=== PATIENT | female | born 1960 | race Caucasian/White ===

== ENCOUNTER → 2016-06-22 | Outpatient (CLI) | payer BC ==
[~2016-06-22] MED LIST: /AMIT100TA PO; /ESCI10TA PO; /MAGN40TA PO; /MESA40TAB PO; /METO25TAB PO; /TAMS4CA PO; ACEBUTOLOL; ACET50TA PO; AMIT100T; BACITAB PO; BUPR15TA PO; CLOT7CR TOP; CONC27TA4 PO; CYCL10TA PO; ESTR2TAB PO; FERR325T; IMIT50TA PO; KETO10TAB PO; LEVO75TA6 PO; LEVO88TA4; LEXA1TAB PO; LOPE2CA PO; LYRI150C PO; MACR100C3 PO; MELATONIN; MULTCAP PO; PEPT262S PO; PRED20TA PO; PREG50CA; PRIL40CA PO; TOPA100T PO; TOPRAMAX PO; TYLE650T30 PO; VITA200016 PO; VITA500T; ZANA4CAP PO; ZOCO20TA PO; ZOLO100T; ZOLO100T PO
--- NOTE | 2016-06-22 09:52 | REP ---
BILATERAL MAMMOGRAM: Bilateral mammography is performed in the MLO and CC projections and compared to multiple prior exams, most recently 05/19/2015. Benign appearing nodule in the outer left breast is stable. Two spiculated densities are seen laterally on the right CC view, questionably seen superiorly on the right MLO view. Recommend spot compression views and ultrasound to further evaluate. Otherwise, there is no change in the parenchymal pattern bilaterally. No clustered microcalcifications are seen. IMPRESSION: ACR 0 incomplete. On the right CC view laterally, two adjacent somewhat spiculated nodular opacities are seen. These are questionably seen on the right MLO view superiorly. Recommend spot compression views and ultrasound to further evaluate. BI-RADS/ACR category 0 mammogram, incomplete. Additional imaging and/or prior images are needed before a final assessment can be assigned. This mammogram was interpreted with the aid of an FDA-approved computer-aided detection system. A. Negative x-ray reports should not delay biopsy if a dominant or clinically suspicious mass is present. B. Four to eight percent of cancers are not identified by x-ray. C. Adenosis and dense breasts may obscure an underlying neoplasm. The patient states she/he had a clinical breast exam in January 2016. The patient letter being requested is M0 Signed by Magdiel Garcia MD 06/22/2016 12:58 P
== END ==
LOC: M WHC 07:00
PROVIDERS: ATTEND Nurse Practitioner Family
DX: Z12.31 Encounter for screening mammogram for malignant neoplasm of breast (principal)

== ENCOUNTER → 2016-06-26 | Outpatient (CLI) | payer BC, OTHER ==
--- NOTE | 2016-06-26 17:34 | REP ---
Digital diagnostic unilateral right breast mammography with CAD: History: Screening mammography from 06/22/2016 was BIRADS category zero for possible nodular neodensity. Diagnostic right breast mammography was recommended. Comparison mammography is also reviewed from 05/19/2015 and 10/29/2013. Findings: Magnified focal spot compression CC, MLO and true MLO views of the right breast were obtained. These show nodular breast parenchyma elements of which are felt to be unchanged from October 2013. The area in question compresses away to normal appearing stromal elements. No microcalcification is seen. No spiculation or architectural distortion is noted. Impression: BIRADS category II benign right mammography. Repeat bilateral mammography recommended 1 year. BI-RADS/ACR category 2 mammogram. Benign finding(s). Routine annual screening mammography (for women over age 40). This mammogram was interpreted with the aid of an FDA-approved computer-aided detection system. The patient states she had a clinical breast exam in January 2016 The patient letter being requested is M2. Signed by Nirmal Owen MD 06/26/2016 06:28 P
== END ==
LOC: M RAD 16:10
PROVIDERS: ATTEND Nurse Practitioner Family
DX: R92.8 Other abnormal and inconclusive findings on diagnostic imaging of breast (principal)

== ENCOUNTER → 2016-09-08 | Outpatient (CLI) | payer BC, OTHER ==
--- NOTE | 2016-09-08 08:50 | REP ---
Clinical: Diarrhea and abdominal pain. Technique: Garcia scale ultrasound using curved array transducer. Findings: The liver and pancreas are normal in contour, size, and echogenicity without focal hepatic or pancreatic lesions identified. The gallbladder is mildly distended and demonstrates multiple mobile gallstones without wall thickening or pericholecystic fluid. A positive sonographic Beyer's sign was however elicited. No biliary ductal dilatation is appreciated, and the common bile duct measures 3.5 mm diameter. The right kidney is normal in reniform shape without hydronephrosis and measures 11.3 x 5.2 x 4.0 cm. No ascites. Visualized portions of the abdominal aorta normal. Impression: Distended gallbladder with multiple gallstones and positive sonographic Beyer's sign. Findings are equivocal for acute cholecystitis versus biliary colic and correlation is required. Signed by Antwon Schuster MD 09/08/2016 08:41 A
[2016-09-08 10:01] LABS: ALBUMIN 3.8 GM/DL (3.2-5.2); ALBUMIN/GLOBULIN RATIO 1.31 (1.00-1.93); BILIRUBIN,TOTAL 0.6 MG/DL (0.2-1.0); CALCIUM LEVEL 8.2 MG/DL (8.5-10.1); CREATININE FOR GFR 1.06 MG/DL (0.55-1.02); FREE T4 0.91 NG/DL (0.76-1.46); GLOMERULAR FILTRATION RATE 57.7 (>51); POTASSIUM SERUM 4.3 MEQ/L (3.5-5.1); TOTAL PROTEIN 6.7 GM/DL (6.4-8.2)
[2016-09-08 10:21] LABS: BASO # 0.1 K/mm3 (0.0-0.2); BASO % 1.6 % (0.0-1.0); EOS # 0.2 K/mm3 (0.0-0.50); EOS % 3.2 % (0.0-3.0); LARGE UNSTAINED CELL # 0.1 K/mm3 (0.0-0.4); LARGE UNSTAINED CELL % 1.4 % (0.0-4.0); LYMPH # 1.6 K/mm3 (1.5-4.5); MEAN CORPUSCULAR HEMOGLOBIN 31.5 pg (27.0-33.0); MEAN CORPUSCULAR HGB CONC 33.6 g/dl (32.0-36.5); MEAN CORPUSCULAR VOLUME 93.9 fl (80.0-96.0); MONO # 0.4 K/mm3 (0.0-0.8); MONO % 7.2 % (0.0-5.0); NEUTROPHILS # 3.3 K/mm3 (1.8-7.7); NEUTROPHILS % 58.5 % (36.0-66.0); PLATELET COUNT, AUTOMATED 233 k/mm3 (150-450); RED CELL DISTRIBUTION WIDTH 12.8 % (11.5-14.5); WHITE BLOOD COUNT 5.6 K/mm3 (4.0-10.0)
== END ==
LOC: M RAD 07:02 → M LAB 07:02
PROVIDERS: ATTEND Nurse Practitioner Family
DX: K59.1 Functional diarrhea (principal)

== ENCOUNTER → 2017-04-09 | Outpatient (REF) | payer OTHER | LOC: M SFHCLERA 12:28 | DX: D23.62 Other benign neoplasm of skin of left upper limb, including shoulder (principal) ==

== ENCOUNTER → 2017-07-09 | Outpatient (REF) | payer OTHER ==
[2017-07-09 16:50] LABS: BASO % 0.5 % (0.0-1.0); EOS # 0.1 10^3/uL (0.0-0.50); HEMATOCRIT 38.8 % (36.0-47.0); HEMOGLOBIN 12.6 g/dl (12.0-15.5); IMMATURE GRANULOCYTE % 0.4 % (0-3.0); LYMPH # 1.3 10^3/uL (1.5-4.5); LYMPH % 16.9 % (24.0-44.0); MEAN CORPUSCULAR HEMOGLOBIN 30.8 pg (27.0-33.0); MEAN CORPUSCULAR HGB CONC 32.5 g/dl (32.0-36.5); MEAN CORPUSCULAR VOLUME 94.9 fl (80.0-96.0); MONO # 0.9 10^3/uL (0.0-0.8); MONO % 11.6 % (0.0-5.0); NEUTROPHILS # 5.4 10^3/uL (1.8-7.7); NEUTROPHILS % 69.6 % (36.0-66.0); PLATELET COUNT, AUTOMATED 256 10^3/uL (150-450); RED BLOOD COUNT 4.09 10^6/uL (4.00-5.40); RED CELL DISTRIBUTION WIDTH 13.4 % (11.5-14.5); WHITE BLOOD COUNT 7.8 10^3/uL (4.0-10.0)
[2017-07-09 17:13] LABS: ALBUMIN 3.9 GM/DL (3.2-5.2); ALBUMIN/GLOBULIN RATIO 1.22 (1.00-1.93); ALKALINE PHOSPHATASE 103 U/L (45-117); ALT/SGPT 26 U/L (12-78); ANION GAP 9 MEQ/L (8-16); AST/SGOT 15 U/L (7-37); BILIRUBIN,TOTAL 0.2 MG/DL (0.2-1.0); BLOOD UREA NITROGEN 11 MG/DL (7-18); CALCIUM LEVEL 8.4 MG/DL (8.5-10.1); CARBON DIOXIDE LEVEL 28 MEQ/L (21-32); CHLORIDE LEVEL 106 MEQ/L (98-107); CREATININE FOR GFR 0.96 MG/DL (0.55-1.30); GLOMERULAR FILTRATION RATE > 60.0 (>51); GLUCOSE, FASTING 90 MG/DL (70-100); LIPASE 137 U/L (73-393); POTASSIUM SERUM 4.3 MEQ/L (3.5-5.1); SODIUM LEVEL 143 MEQ/L (136-145); TOTAL PROTEIN 7.1 GM/DL (6.4-8.2)
== END ==
LOC: M SFHCLERA 11:07
DX: Z90.49 Acquired absence of other specified parts of digestive tract (principal); R19.7 Diarrhea, unspecified; J02.9 Acute pharyngitis, unspecified

== ENCOUNTER → 2017-10-16 | Outpatient (CLI) | payer BC | LOC: M WHC 06:33 | DX: Z12.31 Encounter for screening mammogram for malignant neoplasm of breast (principal) | CPT/HCPCS: 77067 ==

== ENCOUNTER → 2017-12-13 | Outpatient (REF) | payer OTHER | LOC: M SFHCWAGY 13:38 | DX: N89.8 Other specified noninflammatory disorders of vagina (principal) ==

== ENCOUNTER 2017-12-18 17:55 | Emergency (ER) | payer BC, OTHER ==
[2017-12-18] MEDS: CLINDAMYCIN 150 MG CAP PO (20:08)
[2017-12-18] MEDS: NORCO 5/325MG TABLET (BULK FOR ED) PO (20:09)
== END 2017-12-18 20:14 | disposition home or self-care (01) ==
LOC: M ED 17:55
DX: K08.89 Other specified disorders of teeth and supporting structures (principal); E03.9 Hypothyroidism, unspecified; Z79.899 Other long term (current) drug therapy; Z88.0 Allergy status to penicillin; Z88.2 Allergy status to sulfonamides; Z88.8 Allergy status to other drugs, medicaments and biological substances
CPT/HCPCS: 99283

== ENCOUNTER → 2017-12-18 | Outpatient (CLI) | payer BC | LOC: M WHC 13:02 | DX: R33.9 Retention of urine, unspecified (principal); R39.198 Other difficulties with micturition | CPT/HCPCS: 76857 ==

== ENCOUNTER → 2018-02-23 | Outpatient (CLI) | payer BC, OTHER ==
[~2018-02-23] MED LIST changes: +ADVI200C5 PO; +CLEO300C2 PO; +COLA100C5 PO; +EFFE75CA2 PO; +ESTR1TAB PO; +IBUP-1022 PO; +LEVO75TA4 PO; +MAGN200T PO; +METO25TA4 PO; +NORC1TAB4 PO; +NORCOTAB PO; +OMEP40CA2 PO; +TRAZ-163 PO; +WELL100T2 PO
--- NOTE | 2018-02-24 22:07 | ECGEPIP ---
Stationary ECG Study 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 NO SIGNIFICANT CHANGES Electronically Signed On 02-24-2018 22:07:23 EST by Jean Rueda
== END ==
LOC: M EKG 12:22 → M LAB 12:22
PROVIDERS: ATTEND Anesthesiology
DX: Z01.818 Encounter for other preprocedural examination (principal); R55 Syncope and collapse

== ENCOUNTER 2018-02-28 10:56 | Day surgery (SDC) | payer BC, OTHER ==
[2018-02-28] MEDS: LR 1,000 ML IV ×3 (11:50→19:45)
[2018-02-28] MEDS: VASOPRESSIN INJ 20 UNITS/ML VIAL As Ordered (13:10)
[2018-02-28] MEDS ORDERED: MIDAZOLAM INJ 2 MG/2 ML VIAL (J2250) As Ordered (13:12)
[2018-02-28] MEDS ORDERED: LIDOCAINE 2% INJ 100 MG/5 ML SDV (FOR ANES.) As Ordered (13:12)
[2018-02-28] MEDS ORDERED: fentaNYL 100 MCG/2 ML INJECTION (J3010) As Ordered ×3 (13:12→15:50)
[2018-02-28] MEDS ORDERED: PROPOFOL 200 MG/20 ML VIAL As Ordered (13:12)
[2018-02-28] MEDS ORDERED: ONDANSETRON 4MG/2ML VIAL (J2405) As Ordered (13:12)
[2018-02-28] MEDS ORDERED: dexameTHASONE 4 MG/ML 1ML VIAL (J1100) As Ordered (13:12)
[2018-02-28] MEDS ORDERED: METOCLOPRAMIDE INJ 10MG/2ML VIAL (J2765) As Ordered (13:12)
[2018-02-28] MEDS ORDERED: KETOROLAC 60 MG/2 ML VIAL (J1885) As Ordered (13:12)
[2018-02-28] MEDS: PERCOCET 5MG/325MG TAB PO ×2 (15:50→16:20)
[2018-02-28] MEDS ORDERED: PERCOCET 5MG/325MG TAB As Ordered (15:50)
[2018-02-28] MEDS: fentaNYL 100 MCG/2 ML INJECTION (J3010) IV ×4 (15:50→16:05)
[2018-02-28] MEDS ORDERED: ONDANSETRON 4MG/2ML VIAL (J2405) IV (16:00)
[2018-02-28] MEDS: HYDROMORPHONE HCL 0.5 MG/ 0.5 ML SYRINGE (J1170 PER 1) IV ×10 (16:10→17:45)
[2018-02-28] MEDS ORDERED: HYDROMORPHONE HCL 0.5 MG/ 0.5 ML SYRINGE (J1170 PER 1) As Ordered (17:23)
[2018-03-01] MEDS: IBUPROFEN 600 MG TAB PO (00:43)
[2018-03-01] MEDS: NORCO, ANEXSIA 5/325MG TABLET (HYDROcodone/ACETAMINOPHEN) PO ×2 (02:20→09:20)
[2018-03-01] MEDS: LR 1,000 ML IV ×2 (07:23)
== END 2018-03-01 09:50 | disposition home or self-care (01) ==
LOC: M SDC 10:56 → M MS5PR 18:15
DX: T83.721A Exposure of implanted vaginal mesh into vagina, initial encounter (principal); N81.6 Rectocele; K58.8 Other irritable bowel syndrome; E03.9 Hypothyroidism, unspecified; K21.9 Gastro-esophageal reflux disease without esophagitis; F32.9 Major depressive disorder, single episode, unspecified; Z79.899 Other long term (current) drug therapy; Z88.0 Allergy status to penicillin; Z88.2 Allergy status to sulfonamides; Y76.2 Prosthetic and other implants, materials and accessory obstetric and gynecological devices associated with adverse incidents; Y84.8 Other medical procedures as the cause of abnormal reaction of the patient, or of later complication, without mention of misadventure at the time of the procedure
CPT/HCPCS: 57295

== ENCOUNTER → 2018-04-29 | Outpatient (CLI) | payer BC, OTHER ==
[2018-04-29 13:44] LABS: CHOLESTEROL RISK RATIO 2.674 (<5); THYROID STIMULATING HORMONE 0.328 uIU/ML (0.358-3.740); TOTAL 25(OH) VITAMIN D 31.5 NG/ML (30.0-100.0)
== END ==
LOC: M LAB 11:48
PROVIDERS: ATTEND Family Medicine
DX: E55.9 Vitamin D deficiency, unspecified (principal); E03.9 Hypothyroidism, unspecified; Z13.1 Encounter for screening for diabetes mellitus; E78.49 Other hyperlipidemia

== ENCOUNTER → 2018-06-24 | Outpatient (REF) | payer OTHER ==
[~2018-06-24] MED LIST changes: -/AMIT100TA PO; -/ESCI10TA PO; -/MAGN40TA PO; -/METO25TAB PO; -/TAMS4CA PO; -ACET50TA PO; +AMIT1TAB12 PO; +FLOM0.4C39 PO; +HYDR-3715 PO; +MAGN400T15 PO; +MAPA500T17 PO; +METO1TAB87 PO; -NORC1TAB4 PO; +NORC1TAB7 PO; -NORCOTAB PO
== END ==
LOC: M SFHCPLAZ 12:26
PROVIDERS: ATTEND Family Medicine
DX: L57.0 Actinic keratosis (principal)

== ENCOUNTER → 2018-09-26 | Outpatient (REF) | payer OTHER | LOC: M SFHCLERA 17:57 | PROVIDERS: ATTEND Physician Assistant | DX: R30.0 Dysuria (principal) ==

== ENCOUNTER → 2019-03-07 | Outpatient (REF) | payer OTHER ==
[~2019-03-07] MED LIST changes: -OMEP40CA2 PO; +OMEP40CA97 PO
[2019-03-07 11:28] LABS: ALT/SGPT 23 U/L (12-78); BILIRUBIN,TOTAL 0.3 MG/DL (0.2-1.0); BLOOD UREA NITROGEN 25 MG/DL (7-18); CALCIUM LEVEL 9.2 MG/DL (8.5-10.1); CARBON DIOXIDE LEVEL 32 MEQ/L (21-32); CHLORIDE LEVEL 101 MEQ/L (98-107); CHOLESTEROL LEVEL 297 MG/DL (<200); CHOLESTEROL RISK RATIO 2.911 (<5); CREATININE FOR GFR 0.89 MG/DL (0.55-1.30); GLOMERULAR FILTRATION RATE > 60.0 (>51); GLUCOSE, FASTING 89 MG/DL (70-100); HDL CHOLESTEROL 102 MG/DL (>40); LDL CHOLESTEROL 155 MG/DL (<100); MAGNESIUM LEVEL 1.9 MG/DL (1.8-2.4); NON-HDL-C 195 MG/DL; POTASSIUM SERUM 4.5 MEQ/L (3.5-5.1); SODIUM LEVEL 139 MEQ/L (136-145); TOTAL PROTEIN 7.3 GM/DL (6.4-8.2); TRIGLYCERIDES LEVEL 201 MG/DL (<150)
[2019-03-07 11:29] LABS: TOTAL 25(OH) VITAMIN D 38.5 NG/ML (30.0-100.0)
== END ==
LOC: M SFHCPLAZ 07:35
PROVIDERS: ATTEND Family Medicine
DX: Z13.1 Encounter for screening for diabetes mellitus (principal); E78.2 Mixed hyperlipidemia; R25.2 Cramp and spasm; E03.9 Hypothyroidism, unspecified; E55.9 Vitamin D deficiency, unspecified

== ENCOUNTER → 2019-03-31 | Outpatient (REF) | payer OTHER ==
[~2019-03-31] MED LIST changes: -TRAZ-163 PO; +TRAZ-257 PO
[2019-03-31 16:15] LABS: INFLUENZA A AMPLIFICATION POSITIVE (NEGATIVE); INFLUENZA B AMPLIFICATION NEGATIVE (NEGATIVE)
== END ==
LOC: M LAB REF 15:04
PROVIDERS: ATTEND Physician Assistant
DX: R50.9 Fever, unspecified (principal); R05 Cough

== ENCOUNTER → 2019-04-21 | Outpatient (CLI) | payer BC, OTHER ==
--- NOTE | 2019-04-21 11:09 | REPMRS ---
Patient History The patient states she had a clinical breast exam in April 2019. No known family history of cancer. Benign cyst aspiration of the right breast, 2009. Taking unspecified hormones for 8 years. Digital Woman Screen Mammo: April 21, 2019 - Exam #: [id number] Bilateral CC and MLO view(s) were taken. Technologist: Destini Willis, Technologist Prior study comparison: October 16, 2017, bilateral digital woman screen mammo performed at [facility]. June 26, 2016, right breast digital mammo diagnostic unilateral, performed at [facility]. June 22, 2016, digital woman screen mammo performed at [facility]. FINDINGS: There are scattered fibroglandular densities. There are multiple well circumscribed nodules bilaterally in each breast. This pattern as noted previously. There is a dominant well-circumscribed oval-shaped nodule in each breast which is more prominent than on prior mammography. These merit further evaluation. There is a 1.6 cm nodule in the right breast laterally and a 1.4 cm nodule in the left breast upper outer quadrant more retroareolar. There has been no other change in the appearance of the mammogram from the prior studies. There is a mild amount of scattered fibroglandular density which is fairly symmetric. There is no other interval development of dominant mass, architectural distortion, or grouped microcalcification suggestive of malignancy. 3-D tomosynthesis shows no additional findings. Assessment: BI-RADS/ACR category 0 mammogram, Incomplete: Need additional imaging evaluation and/or prior mammograms for comparison. Recommendation Ultrasound and special view mammogram of both breasts. This patient's Lifetime Breast Cancer Risk is estimated at 6.2 %. This mammogram was interpreted with the aid of an FDA-approved computer-aided dectection system. Electronically Signed By: Reece Owen MD 04/21/19 [id number]
== END ==
LOC: M WHC 08:21
PROVIDERS: ATTEND Nurse Practitioner Family
DX: Z12.31 Encounter for screening mammogram for malignant neoplasm of breast (principal); Z79.899 Other long term (current) drug therapy

== ENCOUNTER → 2019-04-25 | Outpatient (CLI) | payer BC, OTHER ==
--- NOTE | 2019-04-25 12:40 | REP ---
DIGITAL DIAGNOSTIC BILATERAL MAMMOGRAPHY WITH CAD AND FOCUSED BILATERAL SONOGRAPHY: HISTORY: Screening mammography April 21, 2019 was BI-RADS category 0 because of a dominant density projecting in the upper outer quadrant of each breast. Diagnostic imaging was recommended. Comparison is also made with October 16, 2017 prior mammography. MAMMOGRAPHIC FINDINGS: Magnified focal spot compression CC, MLO, and mediolateral projection images are obtained bilaterally. These confirm the presence of a well-circumscribed sharply marginated 15 mm opacity in the 8-o'clock position on the right and a 14 mm sharply marginated opacity in the left breast at approximately the 3-o'clock position. These correspond to the findings on screening mammography. No other significant mammographic finding is seen. SONOGRAPHIC FINDINGS: Focused right breast scanning is performed at 8-o'clock position on the right. Two simple cysts are observed at in the 8-o'clock position. 2 cm from the nipple, there is a 1.1 x 1.5 x 0.6 cm cyst. 3 cm from the nipple in the 8-o'clock position, there is a 0.8 x 0.7 x 0.4 cm cyst. The larger of these is felt to correspond to the right-sided mammographic opacity. In the left breast, scanning is performed at approximately 3-o'clock position, where there are also two simple cysts seen sonographically. These measure 1.2 x 0.9 x 0.6 cm and 0.7 x 0.5 x 0.7 cm, respectively. No mass lesion is seen on either side. IMPRESSION: BIRADS 2: BI-RADS/ACR category 2 mammogram. Benign Findings. BI-RADS category 2 benign findings. Cysts seen bilaterally. Repeat bilateral screening mammography recommended in 1 year. This mammogram was interpreted with the aid of an FDA-approved computer-aided detection system. The patient letter being requested is M1. Electronically Signed by Nirmal Owen MD 04/25/2019 01:19 P
== END ==
LOC: M WHC 08:48
PROVIDERS: ATTEND Nurse Practitioner Family
DX: Z12.31 Encounter for screening mammogram for malignant neoplasm of breast (principal)

== ENCOUNTER 2019-06-03 17:50 | Emergency (ER) | payer BC, OTHER ==
[~2019-06-03] VITALS: Ht 165.1 cm; Wt 70.4 kg
[2019-06-03] MEDS ORDERED: NS 1,000 ML IV ONE (18:30)
[2019-06-03] MEDS ORDERED: ONDANSETRON 4MG/2ML VIAL (J2405) IV ONE (18:30)
[2019-06-03] MEDS ORDERED: VENL150C43 (18:59)
[2019-06-03] MEDS ORDERED: CITA20TA6 PO (18:59)
[2019-06-03] MEDS ORDERED: LEVO50TA5 (18:59)
[2019-06-03 19:12] LABS: BASO # 0.1 10^3/uL (0.0-0.2); BASO % 0.7 % (0.0-1.0); EOS # 0.3 10^3/uL (0.0-0.5); EOS % 3.2 % (0.0-3.0); HEMATOCRIT 40.2 % (36.0-47.0); HEMOGLOBIN 12.6 g/dl (12.0-15.5); LYMPH # 1.8 10^3/uL (1.5-5.0); LYMPH % 21.7 % (24.0-44.0); MEAN CORPUSCULAR HEMOGLOBIN 28.1 pg (27.0-33.0); MEAN CORPUSCULAR HGB CONC 31.3 g/dl (32.0-36.5); MEAN CORPUSCULAR VOLUME 89.5 fl (80.0-96.0); MONO # 0.7 10^3/uL (0.0-0.8); MONO % 8.8 % (0.0-5.0); NEUTROPHILS # 5.3 10^3/uL (1.5-8.5); NEUTROPHILS % 64.9 % (36.0-66.0); PLATELET COUNT, AUTOMATED 318 10^3/uL (150-450); RED BLOOD COUNT 4.49 10^6/uL (4.00-5.40); WHITE BLOOD COUNT 8.2 10^3/uL (4.0-10.0)
[2019-06-03 19:28] LABS: BLOOD UREA NITROGEN 16 MG/DL (7-18); CALCIUM LEVEL 7.9 MG/DL (8.5-10.1); CARBON DIOXIDE LEVEL 25 MEQ/L (21-32); CHLORIDE LEVEL 110 MEQ/L (98-107); CREATININE FOR GFR 0.88 MG/DL (0.55-1.30); GLOMERULAR FILTRATION RATE > 60.0 (>51); GLUCOSE, FASTING 81 MG/DL (70-100); POTASSIUM SERUM 3.7 MEQ/L (3.5-5.1); SODIUM LEVEL 140 MEQ/L (136-145)
[2019-06-03] MEDS ORDERED: LOMO2.5T PO (22:13)
[2019-06-03] MEDS ORDERED: ONDA4TAB6 PO (22:13)
[2019-06-03] MEDS ORDERED: LOMOTIL 2.5MG/0.025MG TABLET PO ONE (22:15)
[2019-06-03 22:23] VITALS: BP 139/78
== END 2019-06-03 22:27 | disposition home or self-care (01) ==
LOC: M ED 17:50
DX: K52.9 Noninfective gastroenteritis and colitis, unspecified (principal); A08.4 Viral intestinal infection, unspecified; M79.7 Fibromyalgia; G43.909 Migraine, unspecified, not intractable, without status migrainosus; Z79.899 Other long term (current) drug therapy; Z88.0 Allergy status to penicillin; Z88.2 Allergy status to sulfonamides
CPT/HCPCS: 80048; 85025; 87507; 96361; 96374; 99284; J2405

== ENCOUNTER → 2019-07-01 | Outpatient (CLI) | payer BC, OTHER ==
[~2019-07-01] MED LIST changes: +CITA20TA6 PO; +CYCL-707 PO; -CYCL10TA PO; +LEVO50TA5; +LOMO2.5T PO; +ONDA4TAB6 PO; +VENL150C43
--- NOTE | 2019-07-02 04:13 | REPPI ---
Clinical: Right rib pain. Technique: Frontal view of the chest with four views of the right hemithorax. Findings: Frontal view of the chest demonstrates no acute cardiopulmonary process. Multiple views of the right hemithorax demonstrates no obvious acute rib fracture or pathology. The irregularity of the mid right 12th rib may represent a old healed fracture. Impression: No obvious acute right rib fracture or pathology. Electronically Signed by Antwon Schuster MD 07/02/2019 04:06 A
== END ==
LOC: M PLAIMG 11:21
PROVIDERS: ATTEND Family Medicine
DX: R07.81 Pleurodynia (principal)

== ENCOUNTER → 2019-10-01 | Outpatient (CLI) | payer BC, OTHER ==
[~2019-10-01] MED LIST changes: +SUMA100T2
--- NOTE | 2019-10-01 13:15 | REP ---
Clinical: Bilateral hand pain and stiffness. Technique: AP and lateral views of the right and left hand. Findings: Right hand demonstrates subchondral sclerosis and mild joint space narrowing involving the interphalangeal joints. No subchondral cystic changes osteophytosis or periarticular calcifications. No periarticular swelling. Subchondral sclerosis and cortical irregularities with joint space narrowing also identified involving the carpometacarpal joints and radiocarpal joint space. Left hand demonstrates subchondral sclerosis and mild joint space narrowing involving the interphalangeal joints. No subchondral cystic changes osteophytosis or periarticular calcifications. No periarticular swelling. Subchondral sclerosis and cortical irregularities with joint space narrowing also identified involving the carpometacarpal joints and radiocarpal joint space. 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 Electronically Signed by Antwon Schuster MD 10/01/2019 01:07 P
--- NOTE | 2019-10-01 13:16 | REP ---
Clinical: Pain and stiffness. Technique: AP and lateral views of the right and left wrist. Findings: Right wrist demonstrates cortical irregularity with subtle subchondral sclerosis and joint space narrowing primarily involving the first and second and fifth carpometacarpal joints. Increase sclerosis and joint space narrowing also identified along the radiocarpal joint line. No acute fracture dislocation. Left wrist demonstrates cortical irregularity with subtle subchondral sclerosis and joint space narrowing primarily involving the first and second and fifth carpometacarpal joints. Increase sclerosis and joint space narrowing also identified along the radiocarpal joint line. No acute fracture dislocation. Impression: Mild relatively symmetric osteoarthritic degenerative changes to the bilateral wrists. Electronically Signed by Antwon Schuster MD 10/01/2019 01:08 P
--- NOTE | 2019-10-01 13:18 | REP ---
Clinical: Sacral back pain. Technique: AP and bilateral oblique views of the sacroiliac joints. Findings: The sacroiliac joints appear symmetric and normal. The surrounding osseous structures are intact. Mild arthritic changes to the bilateral hips suggested. Impression: Normal symmetric bilateral sacroiliac joints. Electronically Signed by Antwon Schuster MD 10/01/2019 01:10 P
--- NOTE | 2019-10-01 13:20 | REP ---
Clinical: Sacral back pain. Technique: AP, lateral, bilateral oblique, flexion/extension and coned-down views of the lumbosacral spine. Findings: Alignment and lordosis maintained. No acute fracture / compression injury or subluxation. Disc spaces are within normal limits. No significant degenerative changes noted. No spondylolysis or spondylolisthesis. Impression: Normal age appropriate lumbosacral spine radiograph series. Electronically Signed by Antwon Schuster MD 10/01/2019 01:12 P
== END ==
LOC: M LRY 12:07
PROVIDERS: ATTEND Family Medicine
DX: M53.3 Sacrococcygeal disorders, not elsewhere classified (principal); M47.818 Spondylosis without myelopathy or radiculopathy, sacral and sacrococcygeal region; M19.031 Primary osteoarthritis, right wrist; M19.032 Primary osteoarthritis, left wrist; M19.041 Primary osteoarthritis, right hand; M19.042 Primary osteoarthritis, left hand

== ENCOUNTER 2020-01-05 08:41 | Emergency (ER) | payer OTHER, BC ==
[~2020-01-05] VITALS: Ht 165.1 cm; Wt 53.0 kg
[~2020-01-05 08:41] MED LIST changes: -SUMA100T2
[2020-01-05] MEDS ORDERED: SUMA100T2 (08:52)
[2020-01-05] MEDS ORDERED: ACETAMINOPHEN 500 MG TAB PO ONE (09:30)
[2020-01-05] MEDS ORDERED: ISOVUE-370 76% 100ML VIAL As Ordered ONE (10:19)
[2020-01-05 10:39] LABS: BASO # 0.1 10^3/uL (0.0-0.2); EOS # 0.3 10^3/uL (0.0-0.5); EOS % 3.1 % (0.0-3.0); HEMATOCRIT 33.1 % (36.0-47.0); HEMOGLOBIN 10.3 g/dl (12.0-15.5); LYMPH # 1.4 10^3/uL (1.5-5.0); LYMPH % 15.5 % (24.0-44.0); MEAN CORPUSCULAR HEMOGLOBIN 28.8 pg (27.0-33.0); MEAN CORPUSCULAR HGB CONC 31.1 g/dl (32.0-36.5); MEAN CORPUSCULAR VOLUME 92.5 fl (80.0-96.0); MONO # 0.7 10^3/uL (0.0-0.8); NEUTROPHILS # 6.3 10^3/uL (1.5-8.5); NEUTROPHILS % 71.8 % (36.0-66.0); PLATELET COUNT, AUTOMATED 306 10^3/uL (150-450); RED BLOOD COUNT 3.58 10^6/uL (4.00-5.40); WHITE BLOOD COUNT 8.7 10^3/uL (4.0-10.0)
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
[2020-01-05 10:49] LABS: APPEARANCE, URINE CLEAR (CLEAR); BACTERIA, URINE AUTO NEGATIVE (NEGATIVE); BILIRUBIN, URINE AUTO NEGATIVE (NEGATIVE); BLOOD, URINE BLOOD NEGATIVE (NEGATIVE); COLOR, URINE YELLOW (YELLOW); GLUCOSE, URINE (UA) AUTO NEGATIVE (NEGATIVE); KETONE, URINE AUTO NEGATIVE (NEGATIVE); LEUKOCYTE ESTERASE, URINE AUTO NEGATIVE (NEGATIVE); MUCUS, URINE SMALL (NEGATIVE); NITRITE, URINE AUTO NEGATIVE (NEGATIVE); PROTEIN, URINE AUTO NEGATIVE (NEGATIVE); RBC, URINE AUTO 4 /HPF (0-3); SPECIFIC GRAVITY URINE AUTO 1.023 (1.002-1.035); SQUAMOUS EPITHELIAL CELL UR AU 3 /HPF (0-6); UROBILINOGEN, URINE AUTO 0.2 mg/dL (0.0-2.0); WBC, URINE AUTO 1 /HPF (0-3)
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
[2020-01-05 11:02] LABS: ALBUMIN 3.3 GM/DL (3.2-5.2); ALT/SGPT 22 U/L (12-78); BILIRUBIN,DIRECT < 0.1 MG/DL (0.0-0.2); BILIRUBIN,TOTAL 0.1 MG/DL (0.2-1.0); LIPASE 139 U/L (73-393); TOTAL PROTEIN 6.2 GM/DL (6.4-8.2)
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
[2020-01-05 12:14] LABS: BLOOD UREA NITROGEN 15 MG/DL (7-18); CALCIUM LEVEL 7.8 MG/DL (8.5-10.1); CARBON DIOXIDE LEVEL 28 MEQ/L (21-32); CHLORIDE LEVEL 109 MEQ/L (98-107); GLOMERULAR FILTRATION RATE > 60.0 (>51); GLUCOSE, FASTING 95 MG/DL (70-100); POTASSIUM SERUM 4.1 MEQ/L (3.5-5.1); SODIUM LEVEL 141 MEQ/L (136-145)
[2020-01-05 12:56] VITALS: BP 126/68
== END 2020-01-05 12:57 | disposition home or self-care (01) ==
LOC: M ED 08:41
DX: S30.1XXA Contusion of abdominal wall, initial encounter (principal); S80.01XA Contusion of right knee, initial encounter; S60.221A Contusion of right hand, initial encounter; S16.1XXA Strain of muscle, fascia and tendon at neck level, initial encounter; V40.5XXA Car driver injured in collision with pedestrian or animal in traffic accident, initial encounter; Y92.410 Unspecified street and highway as the place of occurrence of the external cause; M19.90 Unspecified osteoarthritis, unspecified site; E83.51 Hypocalcemia; E03.9 Hypothyroidism, unspecified; F33.9 Major depressive disorder, recurrent, unspecified; G43.909 Migraine, unspecified, not intractable, without status migrainosus; K21.9 Gastro-esophageal reflux disease without esophagitis; Z79.899 Other long term (current) drug therapy; Z79.890 Hormone replacement therapy; Z88.0 Allergy status to penicillin; Z88.1 Allergy status to other antibiotic agents; Z88.2 Allergy status to sulfonamides; Z88.8 Allergy status to other drugs, medicaments and biological substances
CPT/HCPCS: 36415; 72125; 73110; 73130; 73564; 74177; 80047; 80048; 80076; 81001; 82330; 83690; 85025; 99284; Q9967

== ENCOUNTER → 2020-03-18 | Outpatient (CLI) | payer BC, OTHER ==
[~2020-03-18] MED LIST changes: +SUMA100T2
[2020-03-18 17:32] LABS: BASO # 0.1 10^3/uL (0.0-0.2); EOS # 0.3 10^3/uL (0.0-0.5); EOS % 5.2 % (0.0-3.0); HEMOGLOBIN 10.2 g/dl (12.0-15.5); LYMPH # 1.5 10^3/uL (1.5-5.0); LYMPH % 24.3 % (24.0-44.0); MEAN CORPUSCULAR HEMOGLOBIN 27.6 pg (27.0-33.0); MEAN CORPUSCULAR VOLUME 91.9 fl (80.0-96.0); MONO # 0.6 10^3/uL (0.0-0.8); NEUTROPHILS # 3.6 10^3/uL (1.5-8.5); NEUTROPHILS % 59.2 % (36.0-66.0); PLATELET COUNT, AUTOMATED 256 10^3/uL (150-450); WHITE BLOOD COUNT 6.1 10^3/uL (4.0-10.0)
[2020-03-18 18:14] LABS: ALBUMIN 3.8 GM/DL (3.2-5.2); ALT/SGPT 29 U/L (12-78); BILIRUBIN,TOTAL 0.3 MG/DL (0.2-1.0); BLOOD UREA NITROGEN 18 MG/DL (7-18); CALCIUM LEVEL 8.6 MG/DL (8.5-10.1); CARBON DIOXIDE LEVEL 30 MEQ/L (21-32); CHLORIDE LEVEL 107 MEQ/L (98-107); CREATININE FOR GFR 0.71 MG/DL (0.55-1.30); GLOMERULAR FILTRATION RATE > 60.0 (>51); GLUCOSE, FASTING 92 MG/DL (70-100); POTASSIUM SERUM 3.7 MEQ/L (3.5-5.1); SODIUM LEVEL 140 MEQ/L (136-145); THYROID STIMULATING HORMONE 0.311 uIU/ML (0.358-3.740); TOTAL PROTEIN 6.5 GM/DL (6.4-8.2)
== END ==
LOC: M LAB 16:45
PROVIDERS: ATTEND Family Medicine
DX: R53.83 Other fatigue (principal)

== ENCOUNTER → 2020-04-23 | Outpatient (REF) | payer OTHER ==
[2020-04-23 10:38] LABS: HEMATOCRIT 35.7 % (36.0-47.0); HEMOGLOBIN 11.2 g/dl (12.0-15.5); MEAN CORPUSCULAR HEMOGLOBIN 28.6 pg (27.0-33.0); MEAN CORPUSCULAR HGB CONC 31.4 g/dl (32.0-36.5); MEAN CORPUSCULAR VOLUME 91.1 fl (80.0-96.0); PLATELET COUNT, AUTOMATED 335 10^3/uL (150-450); RED BLOOD COUNT 3.92 10^6/uL (4.00-5.40); WHITE BLOOD COUNT 7.6 10^3/uL (4.0-10.0)
[2020-04-23 11:22] LABS: FREE T4 0.97 NG/DL (0.76-1.46); PERCENT SATURATION 9.3 % (13.2-45.0); THYROID STIMULATING HORMONE 0.406 uIU/ML (0.358-3.740)
== END ==
LOC: M SFHCPLAZ 08:16
PROVIDERS: ATTEND Family Medicine
DX: D64.9 Anemia, unspecified (principal); E03.9 Hypothyroidism, unspecified

== ENCOUNTER → 2020-04-23 | Outpatient (CLI) | payer BC, OTHER ==
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
== END ==
LOC: M PLALAB 08:18 → M PLAIMG 08:18
PROVIDERS: ATTEND Family Medicine
DX: M25.561 Pain in right knee (principal)

== ENCOUNTER → 2020-06-02 | Outpatient (CLI) | payer BC ==
[~2020-06-02] MED LIST changes: +FERR325T18
== END ==
LOC: M LABSMTC 11:46
PROVIDERS: ATTEND Anesthesiology
DX: Z01.812 Encounter for preprocedural laboratory examination (principal); Z20.822 Contact with and (suspected) exposure to COVID-19

== ENCOUNTER 2020-06-07 12:18 | Day surgery (SDC) | payer BC, OTHER ==
[~2020-06-07] VITALS: Ht 165.1 cm; Wt 74.4 kg
[~2020-06-07 12:18] MED LIST changes: +NS 1,000 ML IV ONE
[2020-06-07] MEDS ORDERED: LIDOCAINE 2% 100MG/5ML SDV (FOR ANES.) As Ordered ONE (13:08)
[2020-06-07] MEDS ORDERED: propofoL 200 MG/20 ML VIAL As Ordered ONE (13:08)
[2020-06-07] MEDS ORDERED: fentaNYL 100 MCG/2 ML INJECTION (J3010) As Ordered ONE (13:09)
--- NOTE | 2020-06-07 14:16 | ROOR ---
Patient Name: Matilde Wilson Procedure Date: 06/07/2020 1:13 PM Date of : 1960 Age: 59 Room: [facility] Gender: Female Note Status: Finalized Procedure: Upper GI endoscopy Indications: Iron deficiency anemia Providers: Conner Bingham MD Referring MD: Joy Alvarez MD Requesting Provider: Medicines: Monitored Anesthesia Care Complications: No immediate complications. Procedure: Pre-Anesthesia Assessment: - Prior to the procedure, a History and Physical was performed, and patient medications and allergies were reviewed. The patient is competent. The risks and benefits of the procedure and the sedation options and risks were discussed with the patient. All questions were answered and informed consent was obtained. Patient identification and proposed procedure were verified by the physician, the nurse and the anesthesiologist in the procedure room. Mental Status Examination: alert and oriented. Airway Examination: normal oropharyngeal airway and neck mobility. Respiratory Examination: clear to auscultation. CV Examination: normal. Prophylactic Antibiotics: The patient does not require prophylactic antibiotics. Prior Anticoagulants: The patient has taken no previous anticoagulant or antiplatelet agents. ASA Grade Assessment: II - A patient with mild systemic disease. After reviewing the risks and benefits, the patient was deemed in satisfactory condition to undergo the procedure. The anesthesia plan was to use monitored anesthesia care (MAC). Immediately prior to administration of medications, the patient was re-assessed for adequacy to receive sedatives. The heart rate, respiratory rate, oxygen saturations, blood pressure, adequacy of pulmonary ventilation, and response to care were monitored throughout the procedure. The physical status of the patient was re-assessed after the procedure. The Endoscope was introduced through the mouth, and advanced to the second part of duodenum. The upper GI endoscopy was accomplished without difficulty. The patient tolerated the procedure well. Findings: A non-obstructing and mild Schatzki ring was found in the distal esophagus. This was biopsied with a cold forceps for histology. Verification of patient identification for the specimen was done by the physician and nurse using the patient's name, date and medical record number. Estimated blood loss was minimal. The Z-line was regular and was found at the gastroesophageal junction. Patchy severe inflammation characterized by erosions, erythema, friability and granularity was found in the gastric antrum. Biopsies were taken with a cold forceps for Helicobacter pylori testing. The duodenal bulb and second portion of the duodenum were normal. Impression: - Non-obstructing and mild Schatzki ring. Biopsied. - Z-line regular, at the gastroesophageal junction. - Gastritis. Biopsied. - Normal duodenal bulb and second portion of the duodenum. Recommendation: - Patient has a contact number available for emergencies. The signs and symptoms of potential delayed complications were discussed with the patient. Return to normal activities tomorrow. Written discharge instructions were provided to the patient. - High fiber diet. - Continue present medications. - Await pathology results. - Follow an antireflux regimen. - Telephone GI clinic for pathology results in 2 weeks. - Check CBC, serum iron , transferrin and ferritin levels (fasting labs) in 2 months. - Return to primary care physician. Procedure Code(s): --- Professional --- 30471, Esophagogastroduodenoscopy, flexible, transoral; with biopsy, single or multiple Diagnosis Code(s): --- Professional --- K22.2, Esophageal obstruction K29.70, Gastritis, unspecified, without bleeding D50.9, Iron deficiency anemia, unspecified CPT copyright 2019 [employer]. All rights reserved. The codes documented in this report are preliminary and upon manufacturing sr engineer review may be revised to meet current compliance requirements. Conner Bingham MD Conner Bingham MD 06/07/2020 2:15:39 PM Electronically signed by Conner Bingham MD Number of Addenda: 0 Note Initiated On: 06/07/2020 1:13 PM Estimated Blood Loss: Estimated blood loss was minimal.
--- NOTE | 2020-06-07 14:18 | ROOR ---
Patient Name: Matilde Wilson Procedure Date: 06/07/2020 1:14 PM Date of : 1960 Age: 59 Room: [facility] Gender: Female Note Status: Finalized Procedure: Colonoscopy Indications: Iron deficiency anemia Providers: Conner Bingham MD Referring MD: Joy Alvarez MD Requesting Provider: Medicines: Monitored Anesthesia Care Complications: No immediate complications. Procedure: Pre-Anesthesia Assessment: - Prior to the procedure, a History and Physical was performed, and patient medications and allergies were reviewed. The patient is competent. The risks and benefits of the procedure and the sedation options and risks were discussed with the patient. All questions were answered and informed consent was obtained. Patient identification and proposed procedure were verified by the physician, the nurse and the anesthesiologist in the procedure room. Mental Status Examination: alert and oriented. Airway Examination: normal oropharyngeal airway and neck mobility. Respiratory Examination: clear to auscultation. CV Examination: normal. Prophylactic Antibiotics: The patient does not require prophylactic antibiotics. Prior Anticoagulants: The patient has taken no previous anticoagulant or antiplatelet agents. ASA Grade Assessment: II - A patient with mild systemic disease. After reviewing the risks and benefits, the patient was deemed in satisfactory condition to undergo the procedure. The anesthesia plan was to use monitored anesthesia care (MAC). Immediately prior to administration of medications, the patient was re-assessed for adequacy to receive sedatives. The heart rate, respiratory rate, oxygen saturations, blood pressure, adequacy of pulmonary ventilation, and response to care were monitored throughout the procedure. The physical status of the patient was re-assessed after the procedure. The Colonoscope was introduced through the anus and advanced to the terminal ileum, with identification of the appendiceal orifice and IC valve. The colonoscopy was performed without difficulty. The patient tolerated the procedure well. The quality of the bowel preparation was good. The terminal ileum, ileocecal valve, appendiceal orifice, and rectum were photographed. Scope insertion time was 2 minutes. Scope withdrawal time was 9 minutes. The total duration of the procedure was 12 minutes. Findings: The perianal and digital rectal examinations were normal. The terminal ileum appeared normal. Three sessile polyps were found in the recto-sigmoid colon and ascending colon. The polyps were diminutive in size. These polyps were removed with a cold biopsy forceps. Resection and retrieval were complete. Verification of patient identification for the specimen was done by the physician and nurse using the patient's name, date and medical record number. Estimated blood loss was minimal. Multiple small and large-mouthed diverticula were found from sigmoid to descending colon. There was no evidence of diverticular bleeding. Non-bleeding external and internal hemorrhoids were found during retroflexion. The hemorrhoids were medium-sized. Impression: - The examined portion of the ileum was normal. - Three diminutive polyps at the recto-sigmoid colon and in the ascending colon, removed with a cold biopsy forceps. Resected and retrieved. - Moderate diverticulosis from sigmoid to descending colon. There was no evidence of diverticular bleeding. - Non-bleeding external and internal hemorrhoids. Recommendation: - Patient has a contact number available for emergencies. The signs and symptoms of potential delayed complications were discussed with the patient. Return to normal activities tomorrow. Written discharge instructions were provided to the patient. - High fiber diet. - Continue present medications. - Await pathology results. - Repeat colonoscopy in 5-10 years for surveillance based on pathology results. - Use fiber, for example Citrucel, Fibercon, Konsyl or Metamucil. - Telephone GI clinic for pathology results in 2 weeks. - Return to primary care physician. Procedure Code(s): --- Professional --- 95021, Colonoscopy, flexible; with biopsy, single or multiple Diagnosis Code(s): --- Professional --- K64.8, Other hemorrhoids K63.5, Polyp of colon D50.9, Iron deficiency anemia, unspecified K57.30, Diverticulosis of large intestine without perforation or abscess without bleeding CPT copyright 2019 [employer]. All rights reserved. The codes documented in this report are preliminary and upon mix mill tender review may be revised to meet current compliance requirements. Conner Bingham MD Conner Bingham MD 06/07/2020 2:18:00 PM Electronically signed by Conner Bingham MD Number of Addenda: 0 Note Initiated On: 06/07/2020 1:14 PM Estimated Blood Loss: Estimated blood loss was minimal.
[2020-06-07 14:35] VITALS: BP 139/65
== END 2020-06-07 14:36 | disposition home or self-care (01) ==
LOC: M OPP 12:18
PROVIDERS: ATTEND Internal Medicine Gastroenterology
DX: K63.5 Polyp of colon (principal); K57.30 Diverticulosis of large intestine without perforation or abscess without bleeding; K64.0 First degree hemorrhoids; D50.9 Iron deficiency anemia, unspecified; K22.2 Esophageal obstruction; K29.70 Gastritis, unspecified, without bleeding; K44.9 Diaphragmatic hernia without obstruction or gangrene; Z79.899 Other long term (current) drug therapy; Z88.0 Allergy status to penicillin; Z88.2 Allergy status to sulfonamides; Z88.8 Allergy status to other drugs, medicaments and biological substances
CPT/HCPCS: 43239; 45380; 88305; J3010

== ENCOUNTER → 2020-12-03 | Outpatient (CLI) | payer BC, OTHER ==
[~2020-12-03] MED LIST changes: -NS 1,000 ML IV ONE; +OMEP40CA4 PO; -OMEP40CA97 PO
[2020-12-03 10:34] LABS: HEMATOCRIT 39.6 % (36.0-47.0); HEMOGLOBIN 13.1 g/dl (12.0-15.5); MEAN CORPUSCULAR HGB CONC 33.1 g/dl (32.0-36.5); MEAN CORPUSCULAR VOLUME 93.8 fl (80.0-96.0); PLATELET COUNT, AUTOMATED 282 10^3/uL (150-450); RED BLOOD COUNT 4.22 10^6/uL (4.00-5.40)
[2020-12-03 11:17] LABS: PERCENT SATURATION 21.9 % (13.2-45.0); THYROID STIMULATING HORMONE 0.769 uIU/ML (0.358-3.740)
== END ==
LOC: M PLALAB 07:57
PROVIDERS: ATTEND Family Medicine
DX: D50.9 Iron deficiency anemia, unspecified (principal)

== ENCOUNTER → 2021-06-27 | Outpatient (REF) | payer BC, OTHER ==
[2021-06-27 17:57] LABS: APPEARANCE, URINE HAZY (CLEAR); BACTERIA, URINE AUTO NEGATIVE (NEGATIVE); BILIRUBIN, URINE AUTO NEGATIVE (NEGATIVE); BLOOD, URINE BLOOD 1+ (NEGATIVE); COLOR, URINE YELLOW (YELLOW); GLUCOSE, URINE (UA) AUTO NEGATIVE (NEGATIVE); KETONE, URINE AUTO NEGATIVE (NEGATIVE); LEUKOCYTE ESTERASE, URINE AUTO NEGATIVE (NEGATIVE); MUCUS, URINE SMALL (NEGATIVE); NITRITE, URINE AUTO NEGATIVE (NEGATIVE); PROTEIN, URINE AUTO NEGATIVE (NEGATIVE); RBC, URINE AUTO 5 /HPF (0-3); SPECIFIC GRAVITY URINE AUTO 1.019 (1.002-1.035); SQUAMOUS EPITHELIAL CELL UR AU 3 /HPF (0-6); UROBILINOGEN, URINE AUTO 0.2 mg/dL (0.0-2.0); WBC, URINE AUTO 1 /HPF (0-3)
== END ==
LOC: M SFHCPLAZ 17:10
PROVIDERS: ATTEND Physician Assistant
DX: R10.9 Unspecified abdominal pain (principal)

== ENCOUNTER → 2021-07-07 | Outpatient (CLI) | payer BC, OTHER | LOC: M WHC 15:40 | PROVIDERS: ATTEND Family Medicine | DX: Z12.31 Encounter for screening mammogram for malignant neoplasm of breast (principal); N63.20 Unspecified lump in the left breast, unspecified quadrant ==

== ENCOUNTER → 2021-07-19 | Outpatient (REF) | payer BC, OTHER ==
[2021-07-19 10:46] LABS: APPEARANCE, URINE HAZY (CLEAR); BACTERIA, URINE AUTO 1+ (NEGATIVE); BILIRUBIN, URINE AUTO NEGATIVE (NEGATIVE); BLOOD, URINE BLOOD NEGATIVE (NEGATIVE); COLOR, URINE YELLOW (YELLOW); GLUCOSE, URINE (UA) AUTO NEGATIVE (NEGATIVE); KETONE, URINE AUTO NEGATIVE (NEGATIVE); LEUKOCYTE ESTERASE, URINE AUTO NEGATIVE (NEGATIVE); MUCUS, URINE SMALL (NEGATIVE); NITRITE, URINE AUTO NEGATIVE (NEGATIVE); PROTEIN, URINE AUTO NEGATIVE (NEGATIVE); RBC, URINE AUTO 5 /HPF (0-3); SPECIFIC GRAVITY URINE AUTO 1.023 (1.002-1.035); SQUAMOUS EPITHELIAL CELL UR AU 12 /HPF (0-6); WBC, URINE AUTO 3 /HPF (0-3)
== END ==
LOC: M SFHCPLAZ 09:58
PROVIDERS: ATTEND Family Medicine
DX: R31.29 Other microscopic hematuria (principal)

== ENCOUNTER → 2021-07-22 | Outpatient (CLI) | payer BC, OTHER ==
[~2021-07-22] MED LIST changes: +ISOVUE-370 76% 100ML VIAL ONE
== END ==
LOC: M PLAIMG 09:10
PROVIDERS: ATTEND Family Medicine
DX: K44.9 Diaphragmatic hernia without obstruction or gangrene (principal); N81.6 Rectocele; K57.90 Diverticulosis of intestine, part unspecified, without perforation or abscess without bleeding; R31.29 Other microscopic hematuria; Z90.49 Acquired absence of other specified parts of digestive tract
CPT/HCPCS: 74178; Q9967

== ENCOUNTER → 2021-08-12 | Outpatient (REF) | payer BC, OTHER ==
[~2021-08-12] MED LIST changes: -ISOVUE-370 76% 100ML VIAL ONE
[2021-08-12 14:07] LABS: AMORPHOUS SEDIMENT SMALL (NEGATIVE); APPEARANCE, URINE CLEAR (CLEAR); BACTERIA, URINE AUTO NEGATIVE (NEGATIVE); BILIRUBIN, URINE AUTO NEGATIVE (NEGATIVE); BLOOD, URINE BLOOD NEGATIVE (NEGATIVE); COLOR, URINE YELLOW (YELLOW); GLUCOSE, URINE (UA) AUTO NEGATIVE (NEGATIVE); KETONE, URINE AUTO NEGATIVE (NEGATIVE); LEUKOCYTE ESTERASE, URINE AUTO NEGATIVE (NEGATIVE); NITRITE, URINE AUTO NEGATIVE (NEGATIVE); PROTEIN, URINE AUTO NEGATIVE (NEGATIVE); RBC, URINE AUTO 2 /HPF (0-3); SPECIFIC GRAVITY URINE AUTO 1.016 (1.002-1.035); SQUAMOUS EPITHELIAL CELL UR AU 3 /HPF (0-6); UROBILINOGEN, URINE AUTO 0.2 mg/dL (0.0-2.0); WBC, URINE AUTO 1 /HPF (0-3)
== END ==
LOC: M SMT 13:19
PROVIDERS: ATTEND Urology
DX: R31.29 Other microscopic hematuria (principal)

== ENCOUNTER → 2021-12-28 | Outpatient (REF) | payer OTHER, BC ==
[2021-12-28 17:29] LABS: C REACTIVE PROTEIN QUANTITATIV < 0.30 MG/DL (0.00-0.30); RHEUMATOID FACTOR QUANT < 10.0 IU/ML (<15.0)
== END ==
LOC: M LAB REF 16:17
PROVIDERS: ATTEND Internal Medicine
DX: M13.80 Other specified arthritis, unspecified site (principal)

== ENCOUNTER → 2022-06-07 | Outpatient (REF) | payer OTHER ==
[2022-06-08 12:39] LABS: C REACTIVE PROTEIN QUANTITATIV < 0.40 MG/DL (<1.0)
[2022-06-08 12:41] LABS: IMMUNOGLOBULIN A 105.1 MG/DL (40-350)
[2022-06-08 12:48] LABS: VITAMIN B12 LEVEL 396 PG/ML (211-911)
[2022-06-09 17:07] LABS: ENDOMYSIAL ABY IgA Negative (Negative); TISSUE TRANSGLUTAMINASE IgA <2 U/mL (0-3)
== END ==
LOC: M LAB REF 11:26
PROVIDERS: ATTEND Internal Medicine
DX: R10.13 Epigastric pain (principal); G60.9 Hereditary and idiopathic neuropathy, unspecified; M13.0 Polyarthritis, unspecified

== ENCOUNTER → 2023-05-18 | Outpatient (CLI) | payer BC ==
[~2023-05-18] MED LIST changes: +GASTROGRAFIN SOLUTION 30ML As Ordered ONE; +ISOVUE-370 76% 100ML VIAL As Ordered ONE
== END ==
LOC: M RAD 14:00
PROVIDERS: ATTEND Internal Medicine
DX: R10.9 Unspecified abdominal pain (principal); R63.4 Abnormal weight loss
CPT/HCPCS: 74176; Q9963

== ENCOUNTER → 2023-06-01 | Outpatient (CLI) | payer BC, OTHER ==
[~2023-06-01] MED LIST changes: -GASTROGRAFIN SOLUTION 30ML As Ordered ONE; -ISOVUE-370 76% 100ML VIAL As Ordered ONE
== END ==
LOC: M WHC 07:21
PROVIDERS: ATTEND Internal Medicine
DX: Z12.31 Encounter for screening mammogram for malignant neoplasm of breast (principal)

== ENCOUNTER → 2024-01-30 | Outpatient (REF) | payer BC, OTHER ==
[~2024-01-30] MED LIST changes: +ONDA-282 PO; -ONDA4TAB6 PO
[2024-01-30 14:42] LABS: FERRITIN 7.6 NG/ML (7.3-270.7)
== END ==
LOC: M LAB REF 13:15
PROVIDERS: ATTEND Internal Medicine
DX: D64.9 Anemia, unspecified (principal)

== ENCOUNTER → 2024-07-29 | Outpatient (REF) | payer BC, OTHER ==
[2024-07-29 13:26] LABS: FERRITIN 36.4 NG/ML (7.3-270.7); PERCENT SATURATION 18.7 % (13.2-45.0)
== END ==
LOC: M LAB REF 12:10
PROVIDERS: ATTEND Internal Medicine
DX: D64.9 Anemia, unspecified (principal)

== ENCOUNTER → 2025-01-15 | Outpatient (CLI) | payer BC, OTHER ==
[~2025-01-15] MED LIST changes: -IBUP-1022 PO; +IBUP600T42 PO
[2025-01-15 13:19] LABS: BASO # 0.1 10^3/uL (0.0-0.2); BASO % 1.3 % (0.0-1.0); EOS # 0.4 10^3/uL (0.0-0.5); EOS % 5.9 % (0.0-3.0); LYMPH # 1.4 10^3/uL (1.5-5.0); LYMPH % 23.0 % (24.0-44.0); MONO # 0.6 10^3/uL (0.0-0.8); MONO % 9.7 % (2.0-8.0); NEUTROPHILS # 3.6 10^3/uL (1.5-8.5); NEUTROPHILS % 59.8 % (36.0-66.0); PLATELET COUNT, AUTOMATED 292 10^3/uL (150-450)
[2025-01-15 13:54] LABS: ALT/SGPT 24 U/L (7.0-40); AST/SGOT 25 U/L (<34); CALCIUM LEVEL 9.0 MG/DL (8.3-10.6); CARBON DIOXIDE LEVEL 30 MMOL/L (20-31); CHLORIDE LEVEL 105 MMOL/L (98-107); CREATININE FOR GFR 0.98 MG/DL (0.55-1.30); GLOMERULAR FILTRATION RATE 65.3 (>45); POTASSIUM SERUM 4.7 MMOL/L (3.5-5.1); SODIUM LEVEL 142 MMOL/L (136-145)
[2025-01-15 13:56] LABS: VITAMIN B12 LEVEL 646 PG/ML (211-911)
== END ==
LOC: M LAB 11:50
PROVIDERS: ATTEND Psychiatry & Neurology Neurology
DX: R51.9 Headache, unspecified (principal)

== ENCOUNTER → 2025-01-29 | Outpatient (REF) | payer BC, OTHER ==
[2025-01-29 18:49] LABS: IRON (FE) 88.0 UG/DL (50-170)
[2025-01-29 18:50] LABS: PERCENT SATURATION 27.2 % (13.2-45.0)
== END ==
LOC: M LAB REF 17:44
PROVIDERS: ATTEND Internal Medicine
DX: D50.9 Iron deficiency anemia, unspecified (principal)